=== PATIENT | male | born 2000 | race Caucasian/White ===

== ENCOUNTER 2018-07-28 14:25 | Emergency (ER) | payer BC, OTHER ==
[2018-07-28] MEDS ORDERED: Morphine 4 MG/ML VIAL (1 ml) 4 MG/ML VIAL IV ONE (14:40)
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
[2018-07-28 16:47] VITALS: BP 130/69
== END 2018-07-28 17:07 | disposition home or self-care (01) ==
LOC: ED 14:25
DX: Z04.1 Encounter for examination and observation following transport accident (principal); V48.5XXA Car driver injured in noncollision transport accident in traffic accident, initial encounter; Y92.410 Unspecified street and highway as the place of occurrence of the external cause
CPT/HCPCS: 72125; 72128; 72131; 96374; 99284; J2270